=== PATIENT | female | born 1960 | race Caucasian/White ===

== ENCOUNTER 2016-11-30 13:38 | Emergency (ER) | payer BC, OTHER ==
[~2016-11-30] VITALS: Ht 162.6 cm; Wt 122.0 kg
[~2016-11-30 13:38] MED LIST: ALBUAER INH; BUSP15TA70 PO; ESCI10TA17 PO; ESCI1TAB10 PO; FURO40TA3 PO; GLC/500 PO; HYDRCRE28 TD; LORA0.5T12 PO; MELO7.5T5 PO; MULTTAB58 PO; OMEGCAP2 PO; PRLSR20 PO; PROP60CA5 PO; SPIR50TA2 PO
[2016-11-30 13:46] VITALS: TEMP 37; Ht 162.6 cm; Wt 122.0 kg
[2016-11-30 14:27] LABS: BASO % 0.1 %; BASO ABS # 0.01 K/uL (0-0.2); COMPLETE YES; EOS % 1.4 %; IG% 0.3 %; LYMPH % 31.1 %; LYMPH ABS # 2.48 K/uL (1.2-3.4); MEAN CELL VOLUME 87.2 fL (80-100); MEAN CORPUSCULAR HEMOGLOBIN 30.2 pg (25-34); MEAN CORPUSCULAR HGB CONC 34.6 g/dl (32-36); MEAN PLATELET VOLUME 9.2 fL (7.4-10.4); NEUT % 61.1 %; PLATELET COUNT 257 K/uL (130-400); WHITE BLOOD COUNT 7.98 K/uL (4.8-10.8)
[2016-11-30] MEDS ORDERED: VNTHFA/IN INH (14:29)
[2016-11-30] MEDS ORDERED: HYDR-3126 PO (14:30)
[2016-11-30] MEDS ORDERED: OPTIRAY 320 IV PRN (14:30)
[2016-11-30 14:55] LABS: URINE APPEARANCE CLEAR (CLEAR); URINE BILIRUBIN NEG (NEG); URINE COLOR YELLOW; URINE NITRITE NEG (NEG); URINE SPECIFIC GRAVITY 1.006 (1.000-1.030); UROBILINOGEN NEG (NEG); ZZUR CULT IF INDIC CLEAN CATCH NO
[2016-11-30 14:59] LABS: MANUAL MICROSCOPIC REQUIRED? NO; REVIEW REQ? NO
[2016-11-30 15:19] LABS: CALCIUM 8.6 mg/dl (8.5-10.1); CREATININE 1.2 mg/dl (0.60-1.20); POTASSIUM 3.9 mmol/L (3.5-5.1)
--- NOTE | 2016-11-30 15:48 | DIAGNOSTIC IMAGING REPORT ---
CT ABD/PELVIS IV CONTRAST ONLY CLINICAL HISTORY: Abdominal pain with the central abdomen and right lower quadrant. COMPARISON STUDY: October 2010 TECHNIQUE: Following the IV administration of 119 mL of Optiray-320, CT scan of the abdomen and pelvis was performed from the lung bases to the proximal femurs. Images are reviewed in the axial, sagittal, and coronal planes. IV contrast was administered without complication. CT DOSE: 1940.61 mGy.cm FINDINGS: Lower chest: There are bibasal atelectatic changes. Liver: There is mild hepatic steatosis. There is a 24 mm hypodensity within the left lobe of the liver anteriorly near the level of the falciform ligament. This contains a small calcification. This was present on the prior study and likely represents focal fat, or a perfusional variant.. Gallbladder: Unremarkable. Spleen: Normal in size and attenuation. Pancreas: Unremarkable. Adrenal glands: Unremarkable. Kidneys: There is symmetric renal cortical enhancement. The kidneys are normal in size without hydronephrosis. Bowel: There are no transition zones indicate bowel obstruction. The appendix appears normal. There is no acute diverticulitis. Peritoneum: There is no intraperitoneal free air or abdominal ascites. Vasculature: The abdominal aorta is normal in course and caliber. Adenopathy: None. Pelvic viscera: The bladder, and pelvic viscera are unremarkable. Skeletal structures: No destructive osseous lesions are seen. IMPRESSION: 1. No evidence of bowel obstruction. No evidence of free air 2. Normal appendix 3. No acute inflammatory changes Electronically signed by: Dimitry Doe M.D. 11/30/2016 3:47 PM Dictated Date/Time: 11/30/2016 3:42 PM
--- NOTE | 2016-11-30 16:17 | EMERGENCY ROOM VISIT NOTE ---
History First contact with patient: 13:48 Chief Complaint: ABDOMINAL PAIN Stated Complaint: ABDOMINAL PAIN IN THE RIGHT SIDE Nursing Triage Summary: PT HERE WITH RLQ PAIN SINCE THIS AM, ALSO WAS HAVING SOME RIGHT FLANK. PT DENIES ANY URINARY SX NO HX OF STONES. History of Present Illness The patient is a 56 year old female who presents to the Emergency Room with complaints of right-sided abdominal pain which began this morning. The patient reports that she has had an achy pain in her right lower and right mid abdomen throughout today. She states the pain radiates into the back. She was pushing a heavy cart yesterday and initially thought that the pain may have been due to this. She rates the discomfort a 3/10 at this time, but states that earlier it was an 8/10 while she was up and walking. She states the pain had a somewhat sudden onset this morning. She denies any history of similar pain. She denies any nausea, vomiting, urinary symptoms or changes in bowel movements. She denies any chest pain, shortness of breath, recent illness or fevers/chills. She has a history of a laparoscopic surgery for endometriosis, but denies any other surgeries. Review of Systems A complete 10-point Review of Systems was discussed with the patient, with pertinent positives and negatives listed in the History of Present Illness. All remaining Review of Systems questions can be considered negative unless otherwise specified. Past Medical/Surgical History Medical Problems: (1) Cervical dysplasia (2) Colon polyps (3) Endometriosis (4) IBS (irritable bowel syndrome) (5) Tinnitus Surgical Problems: (1) Hx of hemorrhoidectomy Family History FH: cancer FHx: heart disease Hypertension Kidney disease Kidney stones Social History Smoking Status: Never Smoker Alcohol Use: occasionally Housing Status: lives with family Occupation Status: employed Current/Historical Medications Scheduled Albuterol Hfa (Ventolin Hfa), 2-4 PUFFS INH Q6H Buspirone Hcl (Buspar), 15 MG PO BID Escitalopram (Lexapro), 10 MG PO QAM Escitalopram Oxalate (Lexapro), 20 MG PO QAM Furosemide (Lasix), 20 MG PO BID Hydroxyzine Hcl (Atarax), 50 MG PO DAILY Metformin Hcl (Glucophage), 500 MG PO BID Multiple Vitamin (Multivitamin), 1 TAB PO QAM [place]-3 Fatty Acids (Fish Oil), 1 CAP PO QAM Omeprazole (Prilosec), 20 MG PO QAM Propranolol Hcl (Inderal La), 60 MG PO QAM Spironolactone (Aldactone), 25 MG PO BID Scheduled PRN Lorazepam (Lorazepam), 1 TAB PO QID PRN Allergies Coded Allergies: Azithromycin (Verified Allergy, Intermediate, HIVES, 05/02/15) Procaine (Verified Adverse Reaction, Intermediate, TACHYCARDIA, 05/02/15) Uncoded Allergies: EPI (Allergy, Unknown, RAPID HEARTBEAT, SHAKY, 05/02/15) Physical Exam Vital Signs Date Time Temp Pulse Resp B/P Pulse Ox O2 Delivery O2 Flow Rate FiO2 11/30/16 16:35 72 18 111/72 97 11/30/16 15:25 70 18 109/68 97 Room Air 11/30/16 13:46 37.0 78 16 137/89 96 Room Air Physical Exam VITALS: Vitals are noted on the nurse's note and reviewed by myself. Vital signs stable. GENERAL: This is a 56-year-old female, in no acute distress, nondiaphoretic, well-developed well-nourished. SKIN: Capillary reflex less than 2 seconds. HEENT: Normocephalic. PERRLA. EOMI. Nares patent. Mucous membranes moist. Neck is supple without nuchal rigidity. HEART: Regular rate and rhythm without murmurs gallops or rubs. LUNGS: Clear to auscultation bilaterally without wheezes, rales or rhonchi. ABDOMEN: Positive bowel sounds x 4. Soft, with minimal tenderness of the right lower quadrant/right mid abdomen. NEURO: Patient was alert and oriented to person place and time. Medical Decision & Procedures ER Provider Diagnostic Interpretation: CT ABD/PELVIS IV CONTRAST ONLY IMPRESSION: 1. No evidence of bowel obstruction. No evidence of free air 2. Normal appendix 3. No acute inflammatory changes Laboratory Results 11/30/16 14:00 Red Blood Count 4.70, Mean Corpuscular Volume 87.2, Mean Corpuscular Hemoglobin 30.2, Mean Corpuscular Hemoglobin Concent 34.6, Mean Platelet Volume 9.2, Neutrophils (%) (Auto) 61.1, Lymphocytes (%) (Auto) 31.1, Monocytes (%) (Auto) 6.0, Eosinophils (%) (Auto) 1.4, Basophils (%) (Auto) 0.1, Neutrophils # (Auto) 4.88, Lymphocytes # (Auto) 2.48, Monocytes # (Auto) 0.48, Eosinophils # (Auto) 0.11, Basophils # (Auto) 0.01 11/30/16 14:00 Test 11/30/16 14:00 White Blood Count 7.98 K/uL (4.8-10.8) Red Blood Count 4.70 M/uL (4.2-5.4) Hemoglobin 14.2 g/dL (12.0-16.0) Hematocrit 41.0 % (37-47) Mean Corpuscular Volume 87.2 fL (80-100) Mean Corpuscular Hemoglobin 30.2 pg (25-34) Mean Corpuscular Hemoglobin Concent 34.6 g/dl (32-36) Platelet Count 257 K/uL (130-400) Mean Platelet Volume 9.2 fL (7.4-10.4) Neutrophils (%) (Auto) 61.1 % Lymphocytes (%) (Auto) 31.1 % Monocytes (%) (Auto) 6.0 % Eosinophils (%) (Auto) 1.4 % Basophils (%) (Auto) 0.1 % Neutrophils # (Auto) 4.88 K/uL (1.4-6.5) Lymphocytes # (Auto) 2.48 K/uL (1.2-3.4) Monocytes # (Auto) 0.48 K/uL (0.11-0.59) Eosinophils # (Auto) 0.11 K/uL (0-0.5) Basophils # (Auto) 0.01 K/uL (0-0.2) RDW Standard Deviation 41.5 fL (36.4-46.3) RDW Coefficient of Variation 12.9 % (11.5-14.5) Immature Granulocyte % (Auto) 0.3 % Immature Granulocyte # (Auto) 0.02 K/uL (0.00-0.02) Urine Color YELLOW Urine Appearance CLEAR (CLEAR) Urine pH 5.0 (4.5-7.5) Urine Specific [place] 1.006 (1.000-1.030) Urine Protein NEG (NEG) Urine Glucose (UA) NEG (NEG) Urine Ketones NEG (NEG) Urine Occult Blood NEG (NEG) Urine Nitrite NEG (NEG) Urine Bilirubin NEG (NEG) Urine Urobilinogen NEG (NEG) Urine Leukocyte Esterase SMALL (NEG) Urine WBC (Auto) 5-10 /hpf (0-5) Urine RBC (Auto) 0-4 /hpf (0-4) Urine Hyaline Casts (Auto) 1-5 /lpf (0-5) Urine Epithelial Cells (Auto) 10-20 /lpf (0-5) Urine Bacteria (Auto) NEG (NEG) Urine Test NEG (NEG) Anion Gap 11.0 mmol/L (3-11) Est Creatinine Clear Calc Drug Dose 67.5 ml/min Estimated GFR () 58.5 Estimated GFR (Non- 50.5 BUN/Creatinine Ratio 8.0 (10-20) Calcium Level 8.6 mg/dl (8.5-10.1) Total Bilirubin 0.6 mg/dl (0.2-1) Aspartate Amino Transf (AST/SGOT) 20 U/L (15-37) Alanine Aminotransferase (ALT/SGPT) 27 U/L (12-78) Alkaline Phosphatase 87 U/L (45-117) Total Protein 7.5 gm/dl (6.4-8.2) Albumin 3.7 gm/dl (3.4-5.0) Globulin 3.8 gm/dl (2.5-4.0) Albumin/Globulin Ratio 1.0 (0.9-2) Lipase 173 U/L (73-393) Chemistry Specimen Hemolysis Medical Decision Differential diagnosis includes renal calculus, appendicitis, cholecystitis, pyelonephritis, gastritis, colitis, gastritis, among others. The patient was evaluated as above. Labs were drawn and IV access was obtained. Imaging studies were performed and read by radiology as above. The patient declined analgesics. The patient was reassessed multiple times during their stay in the emergency department and remained in stable condition. The patient is a 56-year-old female who presents today complaining of right- sided abdominal pain which has improved since onset. Labs revealed no leukocytosis, anemia or concerning electrolyte abnormalities. Urinalysis was not suggestive of infection. Urine was negative. CT of the abdomen and pelvis was performed and showed no acute findings with the patient's abdomen. She was informed of these findings. The etiology of her pain is unclear at this time. She was instructed to take [id number] pain medication and follow-up with her primary care provider regarding this abdominal pain. She will return for worsening symptoms. Based on the patient's presentation, lab results, and imaging studies, I feel the patient is stable for outpatient treatment. The patient's case was reviewed with Dr. Vergara, ED attending physician, who agreed with my assessment and treatment plan. Discharge instructions were reviewed with the patient. The patient verbalized understanding of my assessment and treatment plan and was discharged home in good condition. Impression Primary Impression: Right sided abdominal pain Departure Information Dispostion Home / Self-Care Condition GOOD Referrals Michael Jesus III, CRNP (PCP) Patient Instructions [facility] Additional Instructions You have been treated in the Emergency Department your Abdominal Pain. Laboratory results and imaging studies have ruled out any emergent causes for your abdominal pain which would warrant admission or surgery. For pain control, you can use the following viem-bfj-ubqxurn medicines (if >12 yo): - Regular strength (325mg/tab) Tylenol (acetaminophen) 2 tabs every 4-6 hours as needed. Do not exceed 12 tablets in a 24 hour period. Avoid taking more than 4 grams (4000 mg) of Tylenol per day. This includes any other sources of acetaminophen you may take on a regular basis. - Regular strength (200 mg/tab) Advil (ibuprofen) 1-2 tabs every 4-6 hours as needed. Do not exceed a dose of 3200 mg per day. Drink plenty of water and stay well hydrated. As with any trip to the Emergency Department, you should follow-up with your Primary Care Provider from today's visit. Return to the emergency department if your symptoms persist despite treatment plan outlined above or if the following symptoms occur: Worsening pain, vomiting , fevers or any other new/concerning symptoms.
[2016-11-30 16:35] VITALS: BP 111/72; PULSE 72; O2SAT 97
== END 2016-11-30 16:36 | disposition home or self-care (01) ==
LOC: C.EDB 13:40 → C.EDC 16:36
DX: R10.9 Unspecified abdominal pain (principal); Z86.010 Personal history of colon polyps; K58.9 Irritable bowel syndrome, unspecified; Z82.49 Family history of ischemic heart disease and other diseases of the circulatory system; Z79.899 Other long term (current) drug therapy

== ENCOUNTER → 2016-12-12 | Outpatient (CLI) | payer BC ==
[~2016-12-12] MED LIST changes: -ALBUAER INH; +HYDR-3126 PO; -HYDRCRE28 TD; -MELO7.5T5 PO; +VNTHFA/IN INH
--- NOTE | 2016-12-12 14:45 | DIAGNOSTIC IMAGING REPORT ---
NUCLEAR MEDICINE HEPATOBILIARY SCAN HISTORY: Pain. Nausea. R10.11 Intermittent right upper quadrant abdominal [id number] COMPARISON: None. TECHNIQUE: Immediately following the intravenous administration of 5.5 mCi Tc-99m Choletec, dynamic anterior abdominal imaging was performed. FINDINGS: Uniform hepatic tracer accumulation is shown. Prompt intrahepatic biliary excretion is seen. The gallbladder, common bile duct, and small bowel are all visualized by 15 minutes. This appearance represents the normal sequence of biliary excretion. IMPRESSION: Normal study Electronically signed by: Pedro Vivas M.D. 12/12/2016 2:44 PM Dictated Date/Time: 12/12/2016 2:43 PM
== END | disposition home or self-care (01) ==
LOC: C.NUCL 12:30
PROVIDERS: ATTEND Nurse Practitioner Adult Health
DX: R10.11 Right upper quadrant pain (principal)

== ENCOUNTER → 2017-01-03 | Outpatient (CLI) | payer BC ==
[2017-01-03 16:32] LABS: BASO % 0.2 %; BASO ABS # 0.01 K/uL (0-0.2); COMPLETE YES; EOS % 1.2 %; HEMATOCRIT 41.1 % (37-47); IG% 0.2 %; LYMPH % 33.4 %; LYMPH ABS # 2.17 K/uL (1.2-3.4); MEAN CELL VOLUME 86.9 fL (80-100); MEAN CORPUSCULAR HGB CONC 34.5 g/dl (32-36); MEAN PLATELET VOLUME 9.9 fL (7.4-10.4); MONO % 6.6 %; NEUT % 58.4 %; PLATELET COUNT 258 K/uL (130-400); RED BLOOD COUNT 4.73 M/uL (4.2-5.4); WHITE BLOOD COUNT 6.49 K/uL (4.8-10.8)
[2017-01-03 16:43] LABS: ALT/SGPT 28 U/L (12-78); AST/SGOT 23 U/L (15-37); BLOOD UREA NITROGEN 12 mg/dl (7-18); BUN/CREATININE RATIO 11.6 (10-20); CALCIUM 8.8 mg/dl (8.5-10.1); CARBON DIOXIDE 28 mmol/L (21-32); CHLORIDE 104 mmol/L (98-107); GLUCOSE 120 mg/dl (70-99); POTASSIUM 3.6 mmol/L (3.5-5.1); SODIUM 140 mmol/L (136-145)
[2017-01-03 16:45] LABS: ALB/GLOB RATIO 0.9 (0.9-2); ALKALINE PHOSPHATASE 85 U/L (45-117)
== END | disposition home or self-care (01) ==
LOC: C.LABBFT 11:43
PROVIDERS: ATTEND Nurse Practitioner Family
DX: R10.9 Unspecified abdominal pain (principal); R19.7 Diarrhea, unspecified

== ENCOUNTER → 2017-01-06 | Outpatient (CLI) | payer BC ==
[2017-01-15 11:38] LABS: O&P SOURCE OTHER-STOOL
== END | disposition home or self-care (01) ==
LOC: C.LABSPEC 12:47
PROVIDERS: ATTEND Nurse Practitioner Family
DX: R10.9 Unspecified abdominal pain (principal); R19.7 Diarrhea, unspecified

== ENCOUNTER → 2017-03-04 | Outpatient (CLI) | payer BC ==
--- NOTE | 2017-03-04 10:43 | DIAGNOSTIC IMAGING REPORT ---
CHEST 2 VIEWS ROUTINE CLINICAL HISTORY: J45.901 Asthma [id number] COMPARISON STUDY: 11/24/2013 FINDINGS: The cardiac and mediastinal contours are normal. There is no evidence of focal pulmonary consolidation. There is no evidence of failure. No pleural effusions are visualized.[ There are linear areas of scar/atelectasis at the lung bases. IMPRESSION: No active disease in the chest. Electronically signed by: Dimitry Doe M.D. 03/04/2017 10:42 AM Dictated Date/Time: 03/04/2017 10:42 AM
== END | disposition home or self-care (01) ==
LOC: C.RAD 10:24
PROVIDERS: ATTEND Nurse Practitioner Family
DX: J45.901 Unspecified asthma with (acute) exacerbation (principal)

== ENCOUNTER → 2017-03-22 | Outpatient (CLI) | payer BC ==
[2017-03-22 09:53] LABS: ALT/SGPT 26 U/L (12-78); AST/SGOT 18 U/L (15-37); BLOOD UREA NITROGEN 9 mg/dl (7-18); BUN/CREATININE RATIO 10.8 (10-20); CARBON DIOXIDE 28 mmol/L (21-32); CHLORIDE 109 mmol/L (98-107); CREATININE 0.87 mg/dl (0.60-1.20); GLUCOSE 101 mg/dl (70-99); POTASSIUM 3.9 mmol/L (3.5-5.1); SODIUM 144 mmol/L (136-145)
[2017-03-22 09:56] LABS: ALB/GLOB RATIO 0.9 (0.9-2); ALKALINE PHOSPHATASE 72 U/L (45-117); CHOLESTEROL 139 mg/dl (0-200); HDL CHOLESTEROL 46 mg/dl; LDL CHOLESTEROL CALCULATED 53 mg/dl; TRIGLYCERIDES 200 mg/dl (0-150); VERY LOW DENSITY LIPOPROT CALC 40 mg/dl
[2017-03-22 11:13] LABS: ESTIMATED AVERAGE GLUCOSE 126 mg/dl; HA1C FLAG Normal (Normal)
== END | disposition home or self-care (01) ==
LOC: C.LAB 08:41
PROVIDERS: ATTEND Nurse Practitioner Family
DX: I10 Essential (primary) hypertension (principal); K21.9 Gastro-esophageal reflux disease without esophagitis; E88.81 Metabolic syndrome and other insulin resistance; E78.00 Pure hypercholesterolemia, unspecified

== ENCOUNTER → 2017-09-10 | Outpatient (CLI) | payer BC ==
[2017-09-10 12:29] LABS: BASO % 0.1 %; BASO ABS # 0.01 K/uL (0-0.2); COMPLETE YES; EOS % 1.5 %; HEMATOCRIT 42.8 % (37-47); IG% 0.1 %; LYMPH % 30.4 %; LYMPH ABS # 2.06 K/uL (1.2-3.4); MEAN CELL VOLUME 88.8 fL (80-100); MEAN CORPUSCULAR HEMOGLOBIN 30.1 pg (25-34); MEAN CORPUSCULAR HGB CONC 33.9 g/dl (32-36); MEAN PLATELET VOLUME 9.5 fL (7.4-10.4); MONO % 7.7 %; NEUT % 60.2 %; PLATELET COUNT 236 K/uL (130-400); RED BLOOD COUNT 4.82 M/uL (4.2-5.4); WHITE BLOOD COUNT 6.77 K/uL (4.8-10.8)
[2017-09-10 13:06] LABS: ALT/SGPT 24 U/L (12-78); BLOOD UREA NITROGEN 13 mg/dl (7-18); BUN/CREATININE RATIO 13.2 (10-20); CALCIUM 8.8 mg/dl (8.5-10.1); CARBON DIOXIDE 27 mmol/L (21-32); CHLORIDE 101 mmol/L (98-107); CREATININE 0.97 mg/dl (0.60-1.20); GLUCOSE 106 mg/dl (70-99); SODIUM 136 mmol/L (136-145)
[2017-09-10 13:14] LABS: ESTIMATED AVERAGE GLUCOSE 117 mg/dl; HA1C FLAG Normal (Normal)
[2017-09-10 13:19] LABS: ALB/GLOB RATIO 0.9 (0.9-2); ALKALINE PHOSPHATASE 92 U/L (45-117); AST/SGOT 19 U/L (15-37); CHOLESTEROL 183 mg/dl (0-200); CHOLESTEROL/HDL RATIO 4.1; HDL CHOLESTEROL 45 mg/dl; LDL CHOLESTEROL CALCULATED 104 mg/dl; TRIGLYCERIDES 172 mg/dl (0-150); VERY LOW DENSITY LIPOPROT CALC 34 mg/dl
== END | disposition home or self-care (01) ==
LOC: C.LABBFT 08:17
PROVIDERS: ATTEND Nurse Practitioner Family
DX: F41.8 Other specified anxiety disorders (principal); I10 Essential (primary) hypertension; K21.9 Gastro-esophageal reflux disease without esophagitis; E88.81 Metabolic syndrome and other insulin resistance; J45.909 Unspecified asthma, uncomplicated; E78.00 Pure hypercholesterolemia, unspecified

== ENCOUNTER → 2017-09-11 | Outpatient (CLI) | payer BC ==
--- NOTE | 2017-09-11 18:15 | DIAGNOSTIC IMAGING REPORT ---
R ELBOW MIN 3 VIEWS ROUTINE CLINICAL HISTORY: Right elbow pain. No recent injury. COMPARISON: None FINDINGS: Alignment of the right elbow is anatomic. No fracture or suspicious lesion is evident. No joint effusion is noted. There is minimal spurring of the olecranon at the insertion of the triceps. There is mild irregularity of the medial lateral condyles which is chronic. There is mild osteophytosis of the ulnotrochlear articulation. IMPRESSION: 1. No acute fracture or joint effusion the right upper elbow. 2. 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 Electronically signed by: Denny Cruz M.D. 09/11/2017 6:14 PM Dictated Date/Time: 09/11/2017 6:13 PM
== END | disposition home or self-care (01) ==
LOC: C.RAD 17:10
PROVIDERS: ATTEND Nurse Practitioner Family
DX: M19.021 Primary osteoarthritis, right elbow (principal); M25.721 Osteophyte, right elbow

== ENCOUNTER → 2017-09-26 | Outpatient (CLI) | payer BC ==
[~2017-09-26] MED LIST changes: +HYDROXYZINE PO; +NAPR1TAB9 PO; +PROP60CA26 PO; -PROP60CA5 PO
--- NOTE | 2017-09-30 15:28 | MAMMOGRAPHY REPORT ---
BILATERAL DIGITAL SCREENING MAMMOGRAM TOMOSYNTHESIS WITH CAD: 09/26/2017 CLINICAL HISTORY: Routine screening. Patient has no complaints. TECHNIQUE: Breast tomosynthesis in addition to standard 2D mammography was performed. Current study was also evaluated with a Computer Aided Detection (CAD) system. COMPARISON: Comparison is made to exams dated: 09/25/2015 mammogram, 09/21/2014 mammogram, 05/11/2013 mammogram, 05/01/2012 mammogram, 10/20/2009 mammogram - [facility], and 12/14/2007. BREAST COMPOSITION: There are scattered areas of fibroglandular density in both breasts. FINDINGS: There is a possible round circumscribed 6 mm mass seen within the left subareolar breast, for which ultrasound and possible additional spot compression views are recommended for further evalu ation. The remainder of both breasts are stable compared to prior exams, without suspicious masses, calcific ations, or areas of architectural distortion noted. IMPRESSION: ACR BI-RADS CATEGORY 0: INCOMPLETE EVALUATION: NEED ADDITIONAL IMAGING EVALUATION Left breast mass, for which additional imaging evaluation is recommended. The patient will be called to schedule an appointment. Approximately 10% of breast cancers are not detected with mammography. A negative mammographic report should not delay biopsy if a clinically suggestive mass is present. Aurelia Cardoso M.D. /:09/26/2017 17:20:53 Hospital Medical Biller: Kayleigh DUDLEY(Marah)(M)(BD), [facility] letter sent: Addl Imaging 0 BI-RADS Code: ACR BI-RADS Category 0: Incomplete Evaluation: Need Additional Imaging Evaluation
== END | disposition home or self-care (01) ==
LOC: C.MAMM 10:37
PROVIDERS: ATTEND Obstetrics & Gynecology
DX: Z12.31 Encounter for screening mammogram for malignant neoplasm of breast (principal); N63.20 Unspecified lump in the left breast, unspecified quadrant

== ENCOUNTER → 2017-10-09 | Outpatient (CLI) | payer BC ==
[~2017-10-09] MED LIST changes: -HYDROXYZINE PO; -NAPR1TAB9 PO; -PROP60CA26 PO; +PROP60CA5 PO
--- NOTE | 2017-10-09 12:45 | MAMMOGRAPHY REPORT ---
UNILATERAL LEFT DIGITAL DIAGNOSTIC MAMMOGRAM TOMOSYNTHESIS AND TARGETED LEFT ULTRASOUND: 10/09/2017 CLINICAL HISTORY: Callback from screening mammogram for left breast asymmetry. TECHNIQUE: Breast tomosynthesis in addition to standard 2D mammography was performed. Spot compress ion left CC and MLO 2-D and tomosynthesis images were obtained. COMPARISON: Comparison is made to exams dated: 09/25/2015 mammogram, 09/26/2017 mammogram, 4 mammogram, 05/11/2013 mammogram, 05/01/2012 mammogram, and 10/20/2009 ultrasound - [facility]. BREAST COMPOSITION: There are scattered areas of fibroglandular density in the left breast. FINDINGS: Spot compression views demonstrate a persistent nodular 7 mm asymmetry within the left sub areolar breast, only well seen on the spot compression CC and tomosynthesis images. Targeted ultrasound was performed of the left subareolar breast in the region of the mammographic asy mmetry. In the left breast at 3:00 periareolar region, there is a lobulated anechoic mass with a few thin internal septations, measuring 6 x 5 mm, which is probably benign and may represent a microcyst ic cluster. In the left subareolar breast, there is an isoechoic 7 x 7 mm mass which is similar in s ize and shape to the asymmetry seen on the mammogram. This may represent a normal fat lobule, howeve r, an isoechoic solid mass cannot be excluded. Therefore recommend ultrasound guided core needle bio psy for further evaluation. Another isoechoic 9 x 4 x 8 mm mass is seen within the left 12:00 subare olar breast, which likely represents a normal fat lobule during real-time scanning. IMPRESSION: ACR BI-RADS CATEGORY 4: SUSPICIOUS, TARGETED ULTRASOUND ACR BI-RADS CATEGORY 4: SUSPICIO US 1. Isoechoic 7 mm mass in the left subareolar breast, which may correspond with the mammographic asym metry. While this could represent a normal fat lobule, it is indeterminant for a solid mass and ultr asound guided core needle biopsy with post-clip mammograms is recommended for further evaluation. 2. Pending benign pathology results, recommend follow-up diagnostic tomosynthesis mammograms and tar geted ultrasound of the left breast in 6 months to confirm stability of a probable 6 mm cyst cluster in the left 3:00 breast and a probable fat lobule in the left 12:00 subareolar breast. A phone call was made to the physician's office to confirm faxed results were received. The patient has been verbally notified of the results. She tentatively scheduled the biopsy before leaving the [facility]. Approximately 10% of breast cancers are not detected with mammography. A negative mammographic report should not delay biopsy if a clinically suggestive mass is present. Aurelia Cardoso M.D. ah/:10/09/2017 11:51:00 Ticket Printer And Tagger: Michelle PONCE)(Debbie), [facility] letter sent: Abnormal 4/5 BI-RADS Code: ACR BI-RADS Category 4: Suspicious Ultrasound BI-RADS: ACR BI-RADS Category 4: Suspici ous
== END | disposition home or self-care (01) ==
LOC: C.MAMM 09:58
PROVIDERS: ATTEND Obstetrics & Gynecology
DX: N63.20 Unspecified lump in the left breast, unspecified quadrant (principal)

== ENCOUNTER → 2017-10-15 | Outpatient (CLI) | payer BC ==
--- NOTE | 2017-10-15 08:27 | Discharge Instructions ---
Discharge Instructions Procedure Procedure Date: Oct 15, 2017. Reason for visit: Left Mass. Discharge Discharge Date: Oct 15, 2017. Discharge Diagnosis: status post breast biopsy Instructions Activity Recommendations: Additional Limitations (see below) Return to School/Work: no limitations Recommended Home Diet: No Limitations Provider Instructions: ACTIVITY RECOMMENDATIONS: * No lifting, pushing, pulling or exercising the affected side for three days. RETURN TO SCHOOL/WORK: * You may return to work/school after the procedure, but do not perform any strenuous activities for 24 to 48 hours. MEDICATIONS: * Tylenol (two 325 mg) every four to six hours if needed for mild pain (if not allergic to Tylenol). DIET: * Resume previous diet. SPECIAL CARE INSTRUCTIONS: * Keep biopsy site dry for 24 hours. May shower after 24 hours, but do not soak (bathe) incision. * May remove Tegaderm (plastic patch) tomorrow AFTER showering. * Leave the steri-strips on for one week. Allow the steri-strips to fall off by themselves. If not off after one week, you may remove them. You may place a Bandaid crosswise over the strips, if desired. * Apply ice 10 minutes on and 10 minutes off as needed. * Wear a bra at bedtime to sleep more comfortably for 2-3 days. * Your referring physician should have the results after approximately 5 to 7 business days. * Call for unusual bleeding, fever, drainage, etc or if you have any questions call during normal business hours or after hours call Dr Cardoso, . FOLLOW UP VISIT: Follow-up with Referring Physician as scheduled. Allergies Coded Allergies: Azithromycin (Verified Allergy, Intermediate, HIVES, 05/02/15) Procaine (Verified Adverse Reaction, Intermediate, TACHYCARDIA, 05/02/15) Uncoded Allergies: EPI (Allergy, Unknown, RAPID HEARTBEAT, SHAKY, 05/02/15) Mo Fernández Recommendations: Call your doctor if: * Temperature above 101 degrees * Pain not relieved by pain medicine ordered * There is increased drainage or redness from any incision * You have any unanswered questions or concerns. Your Doctors Instructions noted above were prepared by provider Aurelia Cardoso. Patient Signature Section: Patient Instructions Signature Page Eli Gallardo Patient (or Guardian) Signature/Date: I have read and understand the instructions given to me by my caregivers. Caregiver/RN/Doctor Signature/Date: The above-named patient and/or guardian has received patient instructions on this date. + Original Patient Signature Page (only) stays with chart. Please make copy for patient.
--- NOTE | 2017-10-15 15:28 | MAMMOGRAPHY REPORT ---
ULTRASOUND GUIDED BIOPSY LEFT BREAST: 10/15/2017 CLINICAL HISTORY: Left subareolar breast mass. PATIENT CONSENT: The procedure, risks and benefits were discussed with the patient and informed writt en consent was obtained. A timeout was performed immediately prior to the procedure. PROCEDURE DESCRIPTION: With ultrasound guidance, aseptic technique, and lidocaine as the local anesth etic (1% lidocaine to anesthetize the skin and 1% lidocaine with epinephrine to anesthetize the deepe r tissues), the mass of concern in the left subareolar breast was sampled 4 times with a 14-gauge Ach ieve biopsy needle. Immediately thereafter, with ultrasound guidance, aseptic technique, and lidocai ne as the local anesthetic, a metallic localizer clip was placed centrally in the mass. Direct press ure was applied to the site immediately post procedure and hemostasis was achieved. Postprocedure un ilateral mammograms were performed to confirm placement of the clip in the expected location of the b reast mass. The patient tolerated the procedure without complication. She was given wound care inst ructions. The specimens were sent to pathology for analysis. COMPARISON: Comparison is made to exams dated: 10/15/2017 mammogram, 10/09/2017 ultrasound, 10/09/2017 ma mmogram, and 09/26/2017 mammogram - [facility]. IMPRESSION: ULTRASOUND GUIDED BIOPSY Ultrasound guided core needle biopsy of the left subareolar breast mass, with clip placement. The pa tient will receive pathology results from her referring provider. Pending benign pathology results, r ecommend follow-up diagnostic tomosynthesis mammograms and targeted ultrasound of the left breast in 6 months to confirm stability of other masses seen within the left breast during the diagnostic odessa fe Cardoso M.D. /:10/15/2017 08:29:43 Metal Dresser: Jennifer DUDLEY(R)(M), [facility]
--- NOTE | 2017-10-15 15:32 | MAMMOGRAPHY REPORT ---
UNILATERAL LEFT DIGITAL DIAGNOSTIC MAMMOGRAM TOMOSYNTHESIS: 10/15/2017 CLINICAL HISTORY: Status post left breast biopsy. TECHNIQUE: Breast tomosynthesis in addition to standard 2D mammography was performed. Postprocedura l left CC and ML tomosynthesis images including C views were obtained. COMPARISON: Comparison is made to exams dated: 10/09/2017 ultrasound, 10/09/2017 mammogram, 09/26/2017 m ammogram, 09/25/2015 mammogram, 09/21/2014 mammogram, and 08/09/2013 ultrasound - [facility]. BREAST COMPOSITION: There are scattered areas of fibroglandular density in the left breast. FINDINGS: A new ribbon-shaped biopsy marker clip is seen at the site of the biopsied mass in the lef t subareolar breast. No significant postbiopsy hematoma is seen. IMPRESSION: POST PROCEDURE IMAGING FOR MARKER PLACEMENT New biopsy marker clip status post left breast biopsy. Pathology results are pending. Approximately 10% of breast cancers are not detected with mammography. A negative mammographic report should not delay biopsy if a clinically suggestive mass is present. Aurelia Cardoso M.D. /:10/15/2017 08:37:58 Receiver/Laborer: Jennifer DUDLEY(Marah)(M), [facility] BI-RADS Code: Post Procedure Imaging For Marker Placement
== END | disposition home or self-care (01) ==
LOC: C.MAMM 08:01
PROVIDERS: ATTEND Obstetrics & Gynecology
DX: R92.8 Other abnormal and inconclusive findings on diagnostic imaging of breast (principal); N63.20 Unspecified lump in the left breast, unspecified quadrant

== ENCOUNTER → 2017-10-21 | Outpatient (CLI) | payer BC | END | disposition home or self-care (01) | LOC: C.PAPS 11:13 | PROVIDERS: ATTEND Obstetrics & Gynecology | DX: Z01.419 Encounter for gynecological examination (general) (routine) without abnormal findings (principal); Z78.0 Asymptomatic menopausal state ==

== ENCOUNTER → 2017-11-27 | Outpatient (CLI) | payer BC ==
--- NOTE | 2017-11-27 17:52 | DIAGNOSTIC IMAGING REPORT ---
L-SPINE MIN 4 VIEWS ROUTINE CLINICAL HISTORY: Low back pain. COMPARISON: Lumbar spine radiographs September 10, 2014. FINDINGS: Alignment of the lumbar spine is anatomic. Vertebral body heights are maintained. There is no fracture or suspicious lesion by radiography. The sacroiliac joints are intact. There is minimal disc space at L5-S1. There is moderate multilevel facet arthrosis. There is equivocal subchondral lucency within the left femoral head. IMPRESSION: 1. No acute lumbar spine fracture. 2. Mild degenerative disc disease within the lumbar spine. Moderate multilevel facet arthrosis. 3. 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 Electronically signed by: Denny Cruz M.D. 11/27/2017 5:50 PM Dictated Date/Time: 11/27/2017 5:44 PM
== END | disposition home or self-care (01) ==
LOC: C.RAD 17:11
PROVIDERS: ATTEND Nurse Practitioner Family
DX: M54.5 Low back pain (principal); M79.606 Pain in leg, unspecified; M47.816 Spondylosis without myelopathy or radiculopathy, lumbar region

== ENCOUNTER → 2017-12-09 | Outpatient (CLI) | payer BC ==
--- NOTE | 2017-12-09 15:32 | DIAGNOSTIC IMAGING REPORT ---
MRI OF THE LEFT HIP WITHOUT IV CONTRAST CLINICAL HISTORY: Left hip pain. COMPARISON STUDY: Lumbar spine radiographs dated 11/27/2017. Pelvic CT dated 11/30/2016. TECHNIQUE: MRI of the left hip is performed utilizing various T1 and T2-weighted sequences in the axial, sagittal, and coronal planes. IV contrast was not administered for this examination. The examination is degraded by large body habitus. FINDINGS: Normal marrow signal intensity is preserved throughout the visualized bony structures. There is no MRI evidence of fracture involving the hips or the visualized bony pelvis. There is no MRI evidence of osteonecrosis involving the femoral heads. Mild parasymphyseal edema is seen on the left. There is no evidence of greater trochanteric or iliopsoas bursitis. No destructive bony lesion is identified. There is no MRI evidence of sacroiliitis. The origin of the hamstring tendons appear intact. There is fatty atrophy of the regional musculature. The pelvic viscera are normal as imaged. There is no pelvic sidewall or inguinal lymphadenopathy. IMPRESSION: 1. No acute bone abnormality is seen involving the hips. There is no MRI evidence of osteonecrosis of the proximal femora. 2. There is mild nonspecific left parasymphyseal marrow edema. Dictated: 12/09/2017 3:23 PM Transcribed: 12/09/2017 3:31 PM ANDERSON_Andrew Electronically signed by: Дмитрий Conner M.D. 12/09/2017 3:32 PM Dictated Date/Time: 12/09/2017 3:23 PM
== END | disposition home or self-care (01) ==
LOC: C.MRI 14:25
PROVIDERS: ATTEND Nurse Practitioner Family
DX: M25.552 Pain in left hip (principal); R93.7 Abnormal findings on diagnostic imaging of other parts of musculoskeletal system

== ENCOUNTER → 2018-01-07 | Outpatient (CLI) | payer BC ==
--- NOTE | 2018-01-07 14:04 | DIAGNOSTIC IMAGING REPORT ---
MRI LUMBAR SPINE W/O CONTRAST CLINICAL HISTORY: Low back pain with bilateral leg radiculopathy. TECHNIQUE: Sagittal and axial T1, T2 and STIR images were obtained. COMPARISON STUDY: Conventional radiographic study dated November 27, 2017 OBSERVATIONS: The vertebral bodies and posterior elements appear intact. There is no abnormal bony signal present to suggest a marrow replacement process. L1-2: No disc protrusions or extrusions. No evidence of spinal canal or neural foraminal compromise. L2-3: No disc protrusions or extrusions. No evidence of spinal canal or neural foraminal compromise. L3-4: No disc protrusions or extrusions. No evidence of spinal canal or neural foraminal compromise. L4-5: No disc protrusions or extrusions. No evidence of spinal canal or neural foraminal compromise. L5-S1: No disc protrusions or extrusions. No evidence of spinal canal or neural foraminal compromise. The conus medullaris and cauda equina appear normal. On sagittal images, there is nonspecific prominence of the endometrium within the lower uterine segment/cervix. Please correlate with any recent gynecological examinations or outside pelvic ultrasounds. IMPRESSION: 1. Incidentally noted nonspecific prominence of the endometrium within the lower uterine segment/cervix. Please correlate with any recent gynecological examinations. 2. Otherwise essentially normal MRI of the lumbar spine for age. Electronically signed by: Dimitry Doe M.D. 01/07/2018 2:03 PM Dictated Date/Time: 01/07/2018 1:56 PM
== END | disposition home or self-care (01) ==
LOC: C.MRIBC 12:52
PROVIDERS: ATTEND Orthopaedic Surgery Orthopaedic Surgery of the Spine
DX: M54.5 Low back pain (principal)

== ENCOUNTER → 2018-02-16 | Day surgery (SDC) | payer BC ==
[2018-02-12 12:43] VITALS: BMI 46.0
[2018-02-12 12:49] LABS: BASO % 0.2 %; BASO ABS # 0.01 K/uL (0-0.2); EOS % 1.4 %; EOS ABS # 0.07 K/uL (0-0.5); HEMATOCRIT 43.1 % (37-47); HEMOGLOBIN 15.3 g/dL (12.0-16.0); IG# 0.01 K/uL (0.00-0.02); LYMPH % 32.7 %; LYMPH ABS # 1.61 K/uL (1.2-3.4); MEAN CELL VOLUME 85.7 fL (80-100); MEAN CORPUSCULAR HEMOGLOBIN 30.4 pg (25-34); MEAN CORPUSCULAR HGB CONC 35.5 g/dl (32-36); MEAN PLATELET VOLUME 8.9 fL (7.4-10.4); MONO % 12.6 %; MONO ABS # 0.62 K/uL (0.11-0.59); NEUT % 52.9 %; NEUT ABS # 2.61 K/uL (1.4-6.5); PLATELET COUNT 188 K/uL (130-400); RED CELL DISTRIBUTION WIDTH CV 12.7 % (11.5-14.5); WHITE BLOOD COUNT 4.93 K/uL (4.8-10.8)
[2018-02-12 13:03] LABS: CALCIUM 8.6 mg/dl (8.5-10.1); CREATININE 0.93 mg/dl (0.60-1.20); POTASSIUM 3.9 mmol/L (3.5-5.1)
--- NOTE | 2018-02-12 13:15 | PAT Medication Instructions ---
Service Date February 12, 2018. Current Home Medication List Albuterol Hfa (Ventolin Hfa), 2-4 PUFFS INH Q6H Buspirone Hcl (Buspar), 15 MG PO BID Escitalopram Oxalate (Lexapro), 30 MG PO QAM Furosemide (Lasix), 20 MG PO BID Lorazepam (Lorazepam), 1 TAB PO QID PRN Metformin Hcl (Glucophage), 500 MG PO BID Multiple Vitamin (Multivitamin), 1 TAB PO QAM Propranolol Hcl (Inderal La), 60 MG PO QAM Spironolactone (Aldactone), 50 MG PO QAM [Hydroxyzine], 10 MG PO HS PRN for N Medication Instructions For Your Scheduled Surgery - Hold the following medications the morning of surgery: Furosemide (Lasix), 20 MG PO BID Metformin Hcl (Glucophage), 500 MG PO BID Multiple Vitamin (Multivitamin), 1 TAB PO QAM Spironolactone (Aldactone), 50 MG PO QAM - Take the following medications the morning of surgery with a sip of water: Albuterol Hfa (Ventolin Hfa), 2-4 PUFFS INH Q6H (if needed, and bring it with you to the hospital) Buspirone Hcl (Buspar), 15 MG PO BID Escitalopram Oxalate (Lexapro), 30 MG PO QAM Lorazepam (Lorazepam), 1 TAB PO QID PRN (if needed) Propranolol Hcl (Inderal La), 60 MG PO QAM [Hydroxyzine], 10 MG PO HS PRN (if needed) - Take the following medications as scheduled the night before surgery: Albuterol Hfa (Ventolin Hfa), 2-4 PUFFS INH Q6H (if needed) Buspirone Hcl (Buspar), 15 MG PO BID Furosemide (Lasix), 20 MG PO BID Lorazepam (Lorazepam), 1 TAB PO QID PRN (if needed) Metformin Hcl (Glucophage), 500 MG PO BID [Hydroxyzine], 10 MG PO HS PRN (if needed) If you have any questions please call us at [phone] or [phone] or [phone]
[~2018-02-16] VITALS: Ht 162.6 cm; Wt 122.1 kg
[~2018-02-16] MED LIST changes: +ATROPINE SULFATE 0.1 MG/ML 5ML SYR IV PRN; -ESCI10TA17 PO; +EpHEDrine SULFATE 50MG/5ML SYR ONE; +EpHEDrine SULFATE INJ 50 MG/ML AMP IV PRN; +FENTANYL CITRATE INJ 50 MCG/1 ML 2 ML VIAL IV PRN; +FENTANYL CITRATE INJ 50 MCG/1 ML 2 ML VIAL ONE; -HYDR-3126 PO; +HYDROXYZINE PO; +IBUPROFEN 600 MG TAB PO PRN; +KETOROLAC TROMETHAMINE 30 MG/ML VIAL IV. PRN; +KETOROLAC TROMETHAMINE 30 MG/ML VIAL ONE; +LACTATED RINGER'S 1000ML 1,000 ML IV SCH; +LIDOCAINE HCL 2% 2 ML VIAL (20MG/ML) ONE; +MIDAZOLAM HCL 1 MG/ML 2ML VIAL ONE; +NAPR1TAB9 PO; -OMEGCAP2 PO; +ONDANSETRON INJ 2 MG/ML 2 ML VIAL IV PRN; +ONDANSETRON INJ 2 MG/ML 2 ML VIAL ONE; +OXYCODONE/ACETAMINOPHEN 5-325 TAB PO PRN; -PRLSR20 PO; +PROMETHAZINE HCL INJ 25 MG in SODIUM CHLORIDE 0.9% 50ML 50 ML IV PRN; +PROP60CA26 PO; -PROP60CA5 PO; +PROPOFOL IV EMULSION 10 MG/ML 20 ML VIAL ONE; +SODIUM CHLORIDE 0.9% 1000ML 1,000 ML IV SCH
[2018-02-16 11:18] VITALS: BP 138/73; PULSE 79; TEMP 36.7; O2SAT 95; Ht 162.6 cm; Wt 122.1 kg
--- NOTE | 2018-02-16 13:30 | History & Physical Bridge Note ---
H&P Re-Evaluation Bridge Note: I have examined the patient, reviewed the History & Physical and in the interval since the performance of the History & Physical I have noted the following changes of clinical significance: No changes noted
--- NOTE | 2018-02-16 14:47 | [facility] Post Operative Brief Note ---
Immediate Operative Summary Operative Date February 16, 2018. Pre-Operative Diagnosis Endometrial Mass Post-Operative Diagnosis Endometrial Mass? Procedure(s) Performed Hysteroscopy, Dilation and Curettage Surgeon Dr. Santi Combs Land Agent Surgeon(s) None Estimated Blood Loss mL Findings Consistent with Post-Op Diagnosis Specimens Permanent specimens A: endometrial currettings Anesthesia Type General Complication(s) none Disposition Accompanied Pt To Recover: no
--- NOTE | 2018-02-16 14:49 | Discharge Instructions ---
Discharge Instructions Date of Service February 16, 2018. Admission Reason for Admission: Endometrial Mass Discharge Discharge Diagnosis / Problem: endometrial mass Discharge Goals Goal(s): Routine recovery after surgery Activity Recommendations Activity Limitations: per Instructions/Follow-up section . Instructions / Follow-Up Instructions / Follow-Up ACTIVITY RECOMMENDATIONS: * Avoid tampons, douching, hot tubs, pools, and intercourse until bleeding has stopped. * May shower as usual. * No strenuous activity for 24-48 hours. After 24-48 hours, you may do anything you feel like doing (driving and sports are okay). SPECIAL CARE INSTRUCTIONS: Special Diet: * Mild nausea may occur in the immediate post-operative period. * Take clear liquids such as tea, cola or bouillon until all nausea has subsided; you may then resume your normal diet. Special Care: * Light bleeding and vaginal spotting can last from a few days to 3-4 weeks. Call your doctor if bleeding becomes heavier than the heaviest part of your period. * Check your temperature twice a day for one week. If it goes above 100.4 degrees Fahrenheit (38.0 Celsius), notify your doctor. * Call your doctor's office for an appointment for 6 weeks after your surgery. FOLLOW-UP VISIT: Call your doctor's office for an appointment for 6 weeks after your surgery. Current Hospital Diet Patient's current hospital diet: Discharge Diet Recommended Diet: Regular Diet Procedures Procedures Performed: Hysteroscopy, Dilation and Curettage Pending Studies Studies pending at discharge: no Medical Emergencies . Who to Call and When: Medical Emergencies: If at any time you feel your situation is an emergency, please call 911 immediately. . Non-Emergent Contact Non-Emergency issues call your: Qa Tester . . "Provider Documentation" section prepared by Feliciano Combs. .
--- NOTE | 2018-02-16 15:25 | Anesthesiology Progress Note ---
Anesthesia Post Op Note Date & Time February 16, 2018 at 15:25 Vital Signs Pain Intensity: 0 Vital Signs Past 12 Hours Date Time Temp Pulse Resp B/P (MAP) Pulse Ox O2 Delivery O2 Flow Rate FiO2 02/16/18 15:15 76 14 111/71 98 Oxymask 3 02/16/18 15:05 79 14 101/59 96 Oxymask 5 02/16/18 14:56 36.9 70 14 111/61 96 Oxymask 5 02/16/18 11:18 36.7 79 20 138/73 (94) 95 Room Air Notes Mental Status: alert / awake / arousable, participated in evaluation Pt Amnestic to Procedure: Yes Nausea / Vomiting: adequately controlled Pain: adequately controlled Airway Patency, RR, SpO2: stable & adequate BP & HR: stable & adequate Hydration State: stable & adequate Anesthetic Complications: no major complications apparent
[2018-02-16 15:40] VITALS: BP 120/57; PULSE 72; TEMP 36.6; O2SAT 96
[2018-02-16 16:10] VITALS: BP 106/67; PULSE 71; TEMP 36.6; O2SAT 96
--- NOTE | 2018-02-17 00:17 | OPERATIVE REPORT ---
DATE OF OPERATION: 02/16/2018 PREOPERATIVE DIAGNOSIS: Endometrial mass. POSTOPERATIVE DIAGNOSIS: Questionable endometrial mass, uncertain. PROCEDURE: Hysteroscopy, D and C. SURGEON: Dr. Feliciano Combs. FLOORWORKER DISTRIBUTOR: None. ESTIMATED BLOOD LOSS: 5 mL. FINDINGS: Consistent with postop diagnosis. SPECIMENS: Endometrial curetting. ANESTHETIC: General. COMPLICATIONS: None. DISPOSITION: Recovery room. DESCRIPTION OF PROCEDURE: Eli was given a general anesthetic, prepped and draped in dorsal lithotomy position in [facility]. Bladder drained. Uterus examined. It should be noted that her vaginal introitus was narrow. A weighted speculum was used in the vagina and I was able to visualize the cervix, grasped with a single tooth tenaculum. Her cervix was somewhat flushed with the vagina. It was very difficult to see the cervical opening. Bimanual exam due to patient's body habitus was also difficult to determine the flexion or angle of the uterus. I was able to dilate somewhat with a lacrimal probe, then with #13 and then with #15 dilator a few centimeters in, I was able to view with the hysteroscope, I believe we were in the endometrial cavity as I did see thin endometrium. There was some minimal thickness as well near the cervical endometrium junction. This was a very difficult case as due to body habitus and narrowing of the cervix and narrowing of the introitus, visualization was challenging. I was able to do a brief curettage and scraped the area; however, the risks persisting in my opinion would have been risk of perforation, so we stopped at this point. At the end of the procedure, sponge and instrument counts were correct. The patient was sent to recovery room in stable condition. I attest to the content of the Intraoperative Record and any orders documented therein. Any exception s are noted below.
== END | disposition home or self-care (01) ==
LOC: C.ACU 10:56
PROVIDERS: ATTEND Obstetrics & Gynecology
DX: N94.89 Other specified conditions associated with female genital organs and menstrual cycle (principal); G47.33 Obstructive sleep apnea (adult) (pediatric); E66.01 Morbid (severe) obesity due to excess calories; Z68.42 Body mass index [BMI] 45.0-49.9, adult; I10 Essential (primary) hypertension; E11.9 Type 2 diabetes mellitus without complications; J45.909 Unspecified asthma, uncomplicated; F41.8 Other specified anxiety disorders; Z88.1 Allergy status to other antibiotic agents; M19.90 Unspecified osteoarthritis, unspecified site; Z79.899 Other long term (current) drug therapy; Z82.49 Family history of ischemic heart disease and other diseases of the circulatory system; Z82.2 Family history of deafness and hearing loss; Z83.6 Family history of other diseases of the respiratory system; Z80.42 Family history of malignant neoplasm of prostate